=== PATIENT | female | born 1960 | race Caucasian/White ===

== ENCOUNTER 2017-08-25 06:45 | Emergency (ER) | payer BC, OTHER ==
[~2017-08-25] VITALS: Ht 160 cm; Wt 66.4 kg
[2017-08-25 06:47] VITALS: TEMP 36.9; Ht 160 cm; Wt 66.4 kg
[2017-08-25] MEDS ORDERED: CLIN300C2 PO (07:49)
--- NOTE | 2017-08-25 07:50 | EMERGENCY ROOM VISIT NOTE ---
History First contact with patient: 07:05 Chief Complaint: EYE ASSESSMENT Stated Complaint: EYE INFECTION History of Present Illness The patient is a 57 year old female who presents to the Emergency Room with complaints of right eye swelling. The patient states that she has had some pain in the lower eyelid of the right eye for the past 3 days. She was seen at urgent care and prescribed ciprofloxacin drops and told to use Claritin and Benadryl for swelling. She states that she did have a small amount of puslike discharge from the lower eyelid last night. She denies any changes in vision. She has noticed some swelling below the eyelid for the past one day which worsened this morning. She rates her overall discomfort a 3/10. Review of Systems A complete 10 point review of systems was reviewed with the patient with pertinent positives and negatives as per history of present illness. All else were negative. Social History Smoking Status: Current Every Day Smoker Current/Historical Medications Scheduled Clindamycin Hcl (Cleocin), 300 MG PO TID Physical Exam Vital Signs Date Time Temp Pulse Resp B/P (MAP) Pulse Ox O2 Delivery O2 Flow Rate FiO2 08/25/17 06:47 36.9 73 16 140/70 99 Room Air Right Eye Acuity: 20/20 Left Eye Acuity: 20/20 Physical Exam VITALS: Vitals are noted on the nurse's note and reviewed by myself. Vital signs stable. GENERAL: This is a 57-year-old female, in no acute distress, nondiaphoretic, well-developed well-nourished. SKIN: Visual acuity as noted above Small amount of redness and swelling just inferior to the right eye. EYES: Pupils equal round and reactive to light and accommodation. No conjunctival injection. Extraocular movements intact. There is swelling consistent with a hordeolum over the lower eyelid. There is erythema and mild swelling inferior to the eyelid consistent with preseptal cellulitis. MOUTH: Mucous membranes moist. NEURO: Patient was alert and oriented to person place and time. Medical Decision & Procedures Medical Decision Differential diagnosis includes acute hordeolum, conjunctivitis, preseptal cellulitis, cellulitis, among others. The patient was evaluated as above. She has a hordeolum of the right lower eyelid and appears to have developed a preseptal cellulitis. She will be placed on antibiotics for this. She was encouraged to continue topical treatment at home and use warm compresses over the eyes well. She was instructed to follow-up with her primary care provider and return here for worsening symptoms. She verbalized understanding of my assessment and treatment plan and was discharged home in good condition. Medication Reconcilliation Current Medication List: was personally reviewed by me Blood Pressure Screening Patient's blood pressure: Normal blood pressure Impression Primary Impression: Preseptal cellulitis Additional Impression: Hordeolum externum of lower eyelid Departure Information Dispostion Home / Self-Care Condition GOOD Prescriptions Clindamycin Hcl (CLEOCIN) 300 Mg Cap 300 MG PO TID for 7 Days, #21 CAP Prov: Mandy Cavanaugh ., SMA 08/25/17 Referrals No Doctor, Assigned (PCP) Patient Instructions My [facility] Additional Instructions You were prescribed clindamycin to be taken 3 times daily as prescribed. This is an antibiotic. All antibiotics have the potential to cause diarrhea. Stop this medication and contact a medical provider if you were to develop any significant adverse side effects including: wheezing, shortness of breath, passing out, vomiting, or a diffuse rash. Always take antibiotics as directed and COMPLETE the ENTIRE course regardless of the improvement of your symptoms. For pain control, you can use the following [id number] medicines (if >12 yo): - Regular strength (325mg/tab) Tylenol (acetaminophen) 2 tabs every 4-6 hours as needed. Do not exceed 12 tablets in a 24 hour period. Avoid taking more than 4 grams (4000 mg) of Tylenol per day. This includes any other sources of acetaminophen you may take on a regular basis. - Regular strength (200 mg/tab) Advil (ibuprofen) 1-2 tabs every 4-6 hours as needed. Do not exceed a dose of 3200 mg per day. Continue the use of the eyedrops you were prescribed previously. Warm compresses over the lower eyelid. Follow-up with your primary care provider for recheck. Return to the emergency department for worsening redness/swelling, difficulty moving the eye, vision problems or any other new/concerning symptoms. Problem Qualifiers
[2017-08-25 08:00] VITALS: BP 140/70; PULSE 73; O2SAT 99
== END 2017-08-25 08:01 | disposition home or self-care (01) ==
LOC: C.EDB 06:46 → C.EDA 08:01
DX: L03.213 Periorbital cellulitis (principal); H00.012 Hordeolum externum right lower eyelid; F17.200 Nicotine dependence, unspecified, uncomplicated